=== PATIENT | male | born 1985 | race Caucasian/White ===

== ENCOUNTER 2022-05-19 19:51 | Emergency (ER) | payer OTHER, SELFPAY ==
[2022-05-19 20:02] VITALS: BP 141/100; PULSE 71; RESP 20; TEMP 36.3; O2SAT 99; BMI 22.1
--- NOTE | 2022-05-19 20:07 | DI.RAD.S_ITS ---
PROCEDURE: XR SHOULDER RT MIN 2V INDICATIONS: injury TECHNIQUE: 2 views of the shoulder were acquired. COMPARISON: None. FINDINGS: Bones: There is superior subluxation of the clavicle at the acromioclavicular joint by approximately 1 shaft width. Associated widening of the coracoclavicular interval is noted. No fracture identified. No suspicious bony lesions. Visualized ribs appear intact. Soft tissues: No suspicious soft tissue calcifications. IMPRESSION: 1. Superior subluxation of the distal clavicle consistent with a type V injury of the acromioclavicular joint. Dictated by: Ancelmo Garcia M.D. on 05/19/2022 at 21:40 Approved by: Ancelmo Garcia M.D. on 05/19/2022 at 21:41
--- NOTE | 2022-05-19 21:44 | ED_ITS ---
HPI - General Adult General Chief complaint: Extremity Injury, Upper Stated complaint: Fell on during [employer] game, neck pain Time Seen by Provider: 05/19/22 21:10 Source: patient Mode of arrival: Ambulatory Limitations: no limitations History of Present Illness HPI narrative: Otherwise healthy 36-year-old male who is here for evaluation of a right shoulder injury. Patient states earlier this afternoon he was playing Frisbee with some friends when he landed on his right shoulder and then someone landed on top of him. He is pain at the top of his right shoulder and pain with really any movement. Is having some tingling down his hands. No prior injuries. No interventions prior to arrival. Related Data Allergies Allergy/AdvReac Type Severity Reaction Status Date / Time No Known Drug Allergies Allergy Verified 05/19/22 20:07 Review of Systems Constitutional Constitutional: Reports system reviewed and no additional complaints, except as documented Musculoskeletal Musculoskeletal: Reports system reviewed and no additional complaints, except as documented Integumentary/Breasts Skin/Breast: Reports system reviewed and no additional complaints, except as d ocumented Neurologic Neurologic: Reports system reviewed and no additional complaints, except as documented Hematologic/Lymphatic On Anticoagulants: No Patient History Social History Smoking Status: Never smoker Smoking Status: Never smoker alcohol intake frequency: 3 or more drinks per day Alcohol type: wine and hard liquor Exam Initial Vital Signs Initial Vital Signs: Vital Signs Temperature 97.4 F L 05/19/22 20:02 Pulse Rate 71 05/19/22 20:02 Respiratory Rate 20 05/19/22 20:02 Blood Pressure 141/100 H 05/19/22 20:02 Pulse Oximetry 99 05/19/22 20:02 Oxygen Delivery Method 05/19/22 20:02 Cardio Pulses: radial pulses present on the right Skin General: no rashes or lesions noted Neuro Sensory Exam: no sensory deficits noted Extrem Other: Discomfort with palpation over the AC joint on the right. No tenderness of the biceps tendon. His right elbow and right wrist are unremarkable. Course Orders Ordered: ED Orders 05/19/22 20:07 XR shoulder RT min 2V Stat Discontinued Medications Hydrocodone Bitart/Acetaminophen (Hydrocodone/Acet 5/325 Tablet) 1 tab PO NOW ONE Stop: 05/19/22 21:45 Last Admin: 05/19/22 22:15 Dose: 1 tab Documented By: KARY Hydrocodone Bitart/Acetaminophen (Hydrocodone/Acet 5/325 Prepack) 1 bottle MISC SEEINSTR ONE Stop: 05/19/22 21:45 Last Admin: 05/19/22 22:15 Dose: 1 bottle Documented By: KARY Vital Signs Vital signs: Vital Signs - 8 hr 05/19/22 20:02 05/19/22 22:21 Temperature 97.4 F L Pulse Rate 71 78 Respiratory Rate 20 16 Blood Pressure 141/100 H 139/90 Pulse Oximetry 99 98 Oxygen Delivery Method Room Air Room Air Medical Decision Making Imaging Data Extremity x-ray #1: Radiologist's Impression: [address] [address] XRay Report Signed Patient: Ty Luong MR#: [id number] : 1985 Acct:[id number] Age/Sex: 36 / M Date of Service: 05/19/22 Loc: ED Accession Number: [id number] ?? Procedure: XR shoulder RT min 2V Ordering Provider: Deangelo Monson D.O. PROCEDURE:? XR SHOULDER RT MIN 2V ? INDICATIONS:? injury ? TECHNIQUE:? 2 views of the shoulder were acquired.? ? COMPARISON:? None. ? FINDINGS:? ? Bones:? There is superior subluxation of the clavicle at the acromioclavicular joint by approximately 1 shaft width.? Associated widening of the coracoclavicular interval is noted.? No fracture identified.? No suspicious bony lesions.? Visualized ribs appear intact.? ? Soft tissues:? No suspicious soft tissue calcifications.? ? IMPRESSION:? ? 1. Superior subluxation of the distal clavicle consistent with a type V injury of the acromioclavicular joint.? ? ? Dictated by: Ancelmo Garcia M.D. on 05/19/2022 at 21:40 ? ? Approved by: Ancelmo Garcia M.D. on 05/19/2022 at 21:41?? MDM Narrative Medical decision making narrative: History and physical and x-ray consistent with a right AC separation. No signs of dislocations nor fractures. Will place in a sling for comfort. Sent home with pain medication. He was informed that he needs to follow-up for physical therapy. He was given return precautions and follow-up instructions. He expressed understanding and agreement. Discharge Plan Departure Patient Disposition: Home Clinical Impression: shoulder Instructions: How to Use a Sling, DI for AC Joint Separation Activity Restrictions/Additional Instructions: The x-ray and your exam today is consistent with what is called a shoulder separation. The sling is for your comfort. I recommend you use ice. It is important that you have follow-up as physical therapy is important for the rehab this type of injury. You can move your shoulder as tolerated. Return to the emergency department for new symptoms. Stand Alone Forms: Patient Portal/API
[2022-05-19] MEDS: HYDROCODONE/ACET 5/325 PREPACK 1 BOTTLE MISC (22:15)
[2022-05-19] MEDS: HYDROCODONE/ACET 5/325 TABLET 1 TAB PO (22:15)
[2022-05-19 22:21] VITALS: BP 139/90; PULSE 78; RESP 16; O2SAT 98
== END 2022-05-19 22:23 | disposition home or self-care (01) ==
PROVIDERS: Emergency Provider Emergency Medicine
DX: S49.91XA Unspecified injury of right shoulder and upper arm, initial encounter (principal); W18.30XA Fall on same level, unspecified, initial encounter; Y93.69 Activity, other involving other sports and athletics played as a team or group
CPT/HCPCS: 73030; 99283